=== PATIENT | female | born 1965 | race Caucasian/White ===

== ENCOUNTER 2025-07-22 00:46 | Emergency (ER) | payer MEDICARE ==
[~2025-07-22] VITALS: Ht 162.6 cm; Wt 81.8 kg
[2025-07-22 02:53] VITALS: BP 140/85; PULSE 78; RESP 14; TEMP 97.5; O2SAT 97
== END 2025-07-22 03:00 | disposition home or self-care (01) ==
LOC: EMS 00:46
DX: S01.01XA Laceration without foreign body of scalp, initial encounter (principal); E78.00 Pure hypercholesterolemia, unspecified; I10 Essential (primary) hypertension; Z86.73 Personal history of transient ischemic attack (TIA), and cerebral infarction without residual deficits; Z98.890 Other specified postprocedural states; W01.10XA Fall on same level from slipping, tripping and stumbling with subsequent striking against unspecified object, initial encounter; Y93.01 Activity, walking, marching and hiking; Y92.89 Other specified places as the place of occurrence of the external cause; Y99.8 Other external cause status
CPT/HCPCS: 12001; 99282; Z7502